=== PATIENT | female | born 1980 | race African-American/Black ===

== ENCOUNTER 2017-06-16 17:51 | Emergency (ER) | payer OTHER ==
[~2017-06-16] VITALS: Ht 162.6 cm; Wt 79.8 kg
[~2017-06-16 17:51] MED LIST: AMOXICILLIN PO; AURALGAN EAR DR14 ML AS; FLEXERIL10 MG PO; FLONASE16 GM; IBUPROFEN; MUSCLE RELAXER; NO MEDICATIONS; ROBAXIN500 MG PO; SUDAFED30 M1 PO; TYLENOL #3 PO; VOLTAREN75 MG PO
[2017-06-16] MEDS ORDERED: NO MEDICATIONS (18:39)
== END 2017-06-16 20:05 | disposition home or self-care (01) ==
LOC: SED 17:51
DX: J01.90 Acute sinusitis, unspecified (principal)
CPT/HCPCS: 99283